=== PATIENT | female | born 1980 | race Native Hawaiian/Other Pacific Islander ===

== ENCOUNTER 2017-03-24 20:41 | Emergency (ER) | payer OTHER ==
[~2017-03-24] VITALS: Ht 157.5 cm; Wt 74.4 kg
[~2017-03-24 20:41] MED LIST: METFTAB PO
[2017-03-24 22:27] LABS: PLATELET COUNT 262 K/uL (152-353)
[2017-03-24 22:36] LABS: POTASSIUM 3.5 mmol/L (3.6-5.2); SODIUM 137 mmol/L (136-145)
[2017-03-25 01:08] VITALS: BP 112/58; TEMP 98.6
== END 2017-03-25 01:09 | disposition home or self-care (01) ==
LOC: ED 20:41
PROVIDERS: Specialist
DX: N73.9 Female pelvic inflammatory disease, unspecified (principal); N83.209 Unspecified ovarian cyst, unspecified side
CPT/HCPCS: 36415; 80053; 81000; 81025; 85027; 87088; 87210; 87490; 87590; 96372; 99284; J0696